=== PATIENT | female | born 1955 | race Caucasian/White ===

== ENCOUNTER 2024-01-05 13:51 | Emergency (ER) | payer MEDICARE, OTHER | END 2024-01-05 15:40 | disposition home or self-care (01) | LOC: JD.ED 13:51 | DX: I49.8 Other specified cardiac arrhythmias (principal); Z88.8 Allergy status to other drugs, medicaments and biological substances; Z79.899 Other long term (current) drug therapy | CPT/HCPCS: 93005; 93010; 93246; 99282; 99284 ==

== ENCOUNTER 2024-06-17 07:54 | Day surgery (SDC) | payer MEDICARE ==
[2024-06-17] MEDS: Lactated Ringers 1,000 ML IV SCH (08:15)
[2024-06-17] MEDS ORDERED: Propofol 200 MG/20 ML SDV ONE ×3 (08:32→09:28)
[2024-06-17] MEDS ORDERED: Lidocaine 1% 2 ML ONE (09:07)
== END 2024-06-17 10:24 | disposition home or self-care (01) ==
LOC: JD.SDS 07:54
PROVIDERS: ATTEND Surgery
DX: Z12.11 Encounter for screening for malignant neoplasm of colon (principal); K57.30 Diverticulosis of large intestine without perforation or abscess without bleeding; Z86.0100 Personal history of colon polyps, unspecified; K80.20 Calculus of gallbladder without cholecystitis without obstruction; J45.909 Unspecified asthma, uncomplicated; E11.9 Type 2 diabetes mellitus without complications; K21.9 Gastro-esophageal reflux disease without esophagitis; Z98.84 Bariatric surgery status; Z79.899 Other long term (current) drug therapy
CPT/HCPCS: J2704; J3490; J7120

== ENCOUNTER 2024-08-12 09:35 | Day surgery (SDC) | payer MEDICARE, BC ==
[~2024-08-12 09:35] MED LIST: Sodium Chloride 0.9% 10 ML Syringe FLUSH PRN; Sodium Chloride 0.9% 10 ML Syringe FLUSH SCH
[2024-08-12] MEDS: Lactated Ringers 1,000 ML IV SCH (10:15)
[2024-08-12] MEDS ORDERED: fentaNYL 250 MCG/5 ML SDV ONE (10:44)
[2024-08-12] MEDS ORDERED: Midazolam 1 MG/ML 2 ML SDV ONE (10:44)
[2024-08-12] MEDS ORDERED: Propofol 200 MG/20 ML SDV ONE (10:44)
[2024-08-12] MEDS ORDERED: ceFAZolin 2 GM Vial ONE (10:45)
[2024-08-12] MEDS ORDERED: Rocuronium 50 MG/5 ML Vial ONE (10:45)
[2024-08-12] MEDS ORDERED: Ondansetron 4 MG/2 ML SDV ONE (10:45)
[2024-08-12] MEDS ORDERED: Ketorolac 30 MG/ML SDV ONE (11:28)
[2024-08-12] MEDS ORDERED: Sugammadex Sodium 200 MG/2 ML VIAL IV ONE (12:05)
[2024-08-12] MEDS ORDERED: EPINEPHrine 1 MG/ML SDV ONE (12:14)
[2024-08-12] MEDS ORDERED: Bupivacaine 0.5% 30 ML SDV ONE (12:15)
[2024-08-12] MEDS: Bupivacaine 0.5% 30 ML SDV ONE (12:40)
[2024-08-12] MEDS: EPINEPHrine 1 MG/ML SDV ONE (12:40)
[2024-08-12] MEDS ORDERED: oxyCODONE 5 MG Tab PO PRN (14:10)
== END 2024-08-12 15:31 | disposition home or self-care (01) ==
LOC: JD.SDS 09:35
PROVIDERS: ATTEND Surgery
DX: K80.10 Calculus of gallbladder with chronic cholecystitis without obstruction (principal); C83.32 Diffuse large B-cell lymphoma, intrathoracic lymph nodes; E11.9 Type 2 diabetes mellitus without complications; E66.9 Obesity, unspecified; Z88.8 Allergy status to other drugs, medicaments and biological substances; Z79.899 Other long term (current) drug therapy; Z68.30 Body mass index [BMI] 30.0-30.9, adult
CPT/HCPCS: 00790; J0171; J0665; J0690; J1885; J2250; J2405; J2704; J3010; J3490; J7120